=== PATIENT | female | born 1960 | race Caucasian/White ===

== ENCOUNTER 2024-02-20 20:51 | Emergency (ER) | payer BC, OTHER ==
[~2024-02-20] VITALS: Ht 152.4 cm; Wt 53.1 kg
--- NOTE | 2024-02-20 21:18 | ED.PDOC ---
HPI Comments 63-year-old female who came to ER for chest pains. About 5:00 p.m. today, she started experiencing sudden onset left-sided chest pains, non provoked, sharp, radiating to her right shoulder, associated with nausea and tingling sensation over her extremities. Patient denies having any similar pain. Patient appears very anxious at this time Chief Complaint: Chest Pain Time Seen by MD: 21:18 Reviewed Notes: Nurses Notes Allergies: Coded Allergies: NO KNOWN ALLERGIES (Unverified , 02/20/24) Information Source: Patient Mode of Arrival: Ambulatory Severity: Moderate Timing: Hours Duration: Intermittent Prehospital treatment: None Location: Chest (L) Radiation: Shoulder (R) Quality: Sharp, Stabbing Onset: With Light Exertion Cardiac Risk Factors: Hyperlipidemia PE Risk Factors: None History of: None Modifying Factors: Nothing Associated Signs and Symptoms: N/V Past Medical History PAST MEDICAL HISTORY: Anxiety, Gout, High Lipids Past Medical History (Other): Chronic back pain Surgical History: Denies all surgeries 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 Family History Family History: Reviewed,noncontributory to illness Social History Smoker: Non-Smoker Alcohol: Denies ETOH Use Drugs: Denies Drug Use Lives In: Home Constitutional: denies: chills, diaphoresis, fatigue, fever, malaise, sweats, weakness, others EENTM: denies: blurred vision, double vision, ear bleeding, ear discharge, ear drainage, ear pain, ear ringing, eye pain, eye redness, hearing loss, mouth pain, mouth swelling, nasal discharge, nose bleeding, nose congestion, nose pain, photophobia, tearing, throat pain, throat swelling, voice changes, others Respiratory: denies: cough, hemoptysis, orthopnea, SOB at rest, shortness of breath, SOB with excertion, stridor, wheezing, others Cardiovascular: reports: chest pain; denies: dizzy spells, diaphoresis, Dyspnea on exertion, edema, irregular heart beat, left arm pain, lightheadedness, palpitations, PND, syncope, others Gastrointestinal: reports: nausea; denies: abdomen distended, abdominal pain, blood streaked bowels, constipated, diarrhea, dysphagia, difficulty swallowing, hematemesis, melena, poor appetite, poor fluid intake, rectal bleeding, rectal pain, vomiting, others Genitourinary: denies: abnormal vagina bleeding, burning, dyspareunia, dysuria, flank pain, frequency, hematuria, incontinence, pain, , vagina discharge, urgency, others Neurological: reports: tingling; denies: dizziness, fainting, headache, left sided numbness, left sided weakness, numbness, paresthesia, pre-existing deficit, right sided numbness, right sided weakness, seizure, speech problems, tremors, weakness, others Musculoskeletal: denies: back pain, gout, joint pain, joint swelling, muscle pain, muscle stiffness, neck pain, others Integumetry: denies: bruises, change in color, change in hair/nails, dryness, laceration, lesions, lumps, rash, wounds, others Allergic/Immunocompromised: denies: Difficulty Healing, Frequent Infections, Hives, Itching, others Hematologic/Lymphatic: denies: anemia, blood clots, easy bleeding, easy bruising, swollen glands, others Endocrine: denies: excessive hunger, excessive sweating, excessive thirst, excessive urination, flushing, intolerance to cold, intolerance to heat, unexplained weight gain, unexplained weight loss, others Psychiatric: denies: anxiety, bipolar disorder, depression, hopeless, panic disorder, schizophrenia, sleepless, suicidal, others Physical Exam General Appearance: No Apparent Distress, Normal HEENT: Normal ENT Inspection, Pharynx Normal, TMs Normal Neck: Full Range of Motion, Non-Tender, Normal, Normal Inspection Respiratory: Chest Non-Tender, Lungs Clear, No Accessory Muscle Use, No Respiratory Distress, Normal Breath Sounds Cardiovascular: No Edema, No JVD, No Murmur, No Gallop, Normal Peripheral Pulses, Regular Rate/Rhythm Breast Exam: Deferred Gastrointestinal: No Organomegaly, Non Tender, No Pulsatile Mass, Normal Bowel Sounds, Soft Genitalia: Deferred Pelvic: Deferred Rectal: Deferred Extremities: No calf tenderness, Normal capillary refill, Normal inspection, Normal range of motion, Non-tender, No pedal edema Musculoskeletal : Apperance: Normal Neurologic: Alert, food cart attendant II-XII nml as Tested, No Motor Deficits, Normal Affect, Normal Mood, No Sensory Deficits Cerebellar Function: Normal Reflexes: Normal Skin: Dry, Normal Color, Warm Lymphatic: No Adenopathy Was a procedure done? Was a procedure done?: No CP Differential Dx Differential Diagnosis: Angina, Anxiety / Panic Attack Differential Diagnosis: Angina, Chest Wall Pain, Costochondritis, Esophageal reflux/spasm, Gastritis, Myocardial Infarction X-Ray, Labs, Meds, VS Vital Signs Date Time Temp Pulse Resp B/P (MAP) Pulse Ox O2 Delivery O2 Flow Rate FiO2 02/21/24 00:08 108 02/20/24 22:02 127 02/20/24 20:55 98.1 132 20 133/97 (109) 99 02/20/24 20:55 120 Lab Test 02/21/24 00:14 02/20/24 22:14 02/20/24 21:00 Range/Units Troponin I High Sensitivity Pending < 3 L < 3 L </=34 ng/L White Blood Count 8.3 4.4-10.8 10^3/uL Red Blood Count 5.29 H 4.0-5.20 10^6/uL Hemoglobin 16.1 12.2-16.2 g/dL Hematocrit 46.8 H 36.0-46.0 % Mean Corpuscular Volume 88.5 80.0-100.0 fL Mean Corpuscular Hemoglobin 30.5 28.0-32.0 pg Mean Corpuscular Hemoglobin Concent 34.4 32.0-36.0 g/dL Red Cell Distribution Width 13.8 11.8-14.3 % Platelet Count 251 140-450 10^3/uL Mean Platelet Volume 7.9 6.9-10.8 fL Neutrophils (%) (Auto) 88.8 H 37.0-80.0 % Lymphocytes (%) (Auto) 6.5 L 10.0-50.0 % Monocytes (%) (Auto) 4.3 0.0-12.0 % Eosinophils (%) (Auto) 0.2 0.0-7.0 % Basophils (%) (Auto) 0.2 0.0-2.0 % Neutrophils # (Auto) 7.4 1.6-8.6 10 ^3/uL Lymphocytes # (Auto) 0.5 0.4-5.4 10 ^3/uL Monocytes # (Auto) 0.4 0-1.3 10 ^3/uL Eosinophils # (Auto) 0 0-0.8 10 ^3/uL Basophils # (Auto) 0 0-0.2 10 ^3/uL Nucleated Red Blood Cells 0.3 % Sodium Level 140 136-145 mmol/L Potassium Level 3.6 3.5-5.1 mmol/L Chloride Level 106 98-107 mmol/L Carbon Dioxide Level 28 20-31 mmol/L Anion Gap 6 5-15 Blood Urea Nitrogen 11 9-23 mg/dL Creatinine 0.90 0.550-1.02 mg/dL Glomerular Filtration Rate Calc 73 >90 mL/min BUN/Creatinine Ratio 12.2 10.0-20.0 Serum Glucose 131 H 74-106 mg/dL Calcium Level 9.8 8.7-10.4 mg/dL Time of 1ST Reevaluation: 21:13 Reevaluation 1ST: Unchanged Patient Education/Counseling: Diagnosis, Treatment Family Education/Counseling: No Family Present Departure 1 Departure Time of Disposition: 00:30 (Patient presented with chest pain that was concerning for possible STEMI, ACS, PE, Pneumonia, Muscle Strain, COPD, Diss ection. Data: 1. I ordered and reviewed the result of at least 3 labs including a CBC, BMP, and Troponin. 2. I independently interpreted the following tests: EKG which shows normal sinus rhythm and Chest X-ray which shows a benign chest.Risk:This patient presented with a high risk of morbidity due to further diagnostic testing or treatment and may suffer from an acute cardiac or re spiratory disorder. After review of all the data patient is unlikely to have a pe , dissection, and is low risk for acs. Patient is stable at this time.Workup so far is benign and patient will be discharged with outpatient followup. ) Impression: Primary Impression: Acute chest pain Disposition: HOME / SELF CARE / HOMELESS Condition: Stable Additional Instructions: You presented today with chest pain. Your workup today was benign including labs, troponin, EKG, chest x-ray. Your pain may be from musculoskeletal strain, acid reflux, anxiety, or many other factors. It is important to follow up with your regular doctor within 1 week. If your symptoms worsen or you have any other concerns please return to the emergency room. Discharged With: Self Critical Care Note Critical Care Time?: Yes (35 min-critical care time only) Stability Stability form required: No Heart Score Heart Score: Heart Score Response (Comments) Value History Moderate Suspicious 1 EKG Repolarization Disturb 1 Age 45-64 1 Risk Factors 1 or 2 risk factors 1 Troponin Normal limit 0 Total 4 I personally scribed for GALEN PAREDES MD ([email or web address]) on 02/20/24 at 21:18. Electronically submitted by Savage Farah ([email or web address]). GALEN PAREDES MD Feb 20, 2024 21:18
--- NOTE | 2024-02-20 22:17 | ECG ---
[facility] Test Date: 2024-02-20 Test Time: 22:02:47 Pat Name: PACO THOMAS Department: ER Room: Gender: F Drop Wirer: : 1960 Requested By: GALEN PAREDES Order Number: [id number] Reading MD: Measurements Intervals [place] Rate: 127 P: 50 [place]: 130 QRS: 30 QRSD: 82 T: 47 QT: 309 QTc: 450 Interpretive Statements Sinus tachycardia Low voltage, precordial leads Please click the below link to view image of tracing.
[2024-02-20 23:32] LABS: Basophils # (auto) 0 10 ^3/uL (0-0.2); Basophils % (auto) 0.2 % (0.0-2.0); Eosinophils # (auto) 0 10 ^3/uL (0-0.8); Eosinophils % (auto) 0.2 % (0.0-7.0); Hematocrit 46.8 % (36.0-46.0); Hemoglobin 16.1 g/dL (12.2-16.2); Lymphocytes # (auto) 0.5 10 ^3/uL (0.4-5.4); Lymphocytes % (auto) 6.5 % (10.0-50.0); Mean Corpuscular Hemoglobin 30.5 pg (28.0-32.0); Mean Corpuscular Hgb Conc. 34.4 g/dL (32.0-36.0); Mean Corpuscular Volume 88.5 fL (80.0-100.0); Monocytes # (auto) 0.4 10 ^3/uL (0-1.3); Monocytes % (auto) 4.3 % (0.0-12.0); Neutrophils # (auto) 7.4 10 ^3/uL (1.6-8.6); Neutrophils % (auto) 88.8 % (37.0-80.0); Nucleated Red Blood Cells % 0.3 %; Platelet Count (auto) 251 10^3/uL (140-450); Red Blood Cells 5.29 10^6/uL (4.0-5.20); Red Cell Distribution Width 13.8 % (11.8-14.3); White Blood Cell 8.3 10^3/uL (4.4-10.8)
[2024-02-20 23:34] LABS: Chloride 106 mmol/L (98-107); Potassium 3.6 mmol/L (3.5-5.1); Sodium 140 mmol/L (136-145)
[2024-02-20 23:35] LABS: Anion Gap 6 (5-15); Calcium 9.8 mg/dL (8.7-10.4); Carbon Dioxide 28 mmol/L (20-31)
[2024-02-20 23:40] LABS: BUN/Creatinine Ratio 12.2 (10.0-20.0); Blood Urea Nitrogen 11 mg/dL (9-23); Glucose 131 mg/dL (74-106)
--- NOTE | 2024-02-20 23:42 | DVH ---
XY CHEST TWO VIEWS ROUTINE, HISTORY: chest pain COMPARISON: None None TECHNICAL DATA: 2 view of the chest was obtained. FINDINGS: Lines and tubes: None Cardiomediastinal silhouette: normal Pulmonary vasculature: normal Lung expansion: normal Lung airspace: normal Lung interstitium: normal Pleura: normal Pneumothorax: no Bones: Unremarkable Other: no IMPRESSION: No acute intrathoracic abnormality.
[2024-02-21] MEDS: ACETAMINOPHEN 325 MG TAB PO ONE (01:19)
[2024-02-21] MEDS: KETOROLAC TROMETH 30 MG/ML 1ML VIAL IM ONE (01:39)
[2024-02-21 01:40] VITALS: BP 129/81; PULSE 124; RESP 18; TEMP 100.1; O2SAT 94
--- NOTE | 2024-02-22 13:50 | ECG ---
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
--- NOTE | 2024-02-23 11:12 | ECG ---
[facility] Test Date: 2024-02-20 Test Time: 20:55:32 Pat Name: PACO TOHMAS Department: TRIAGE Room: Gender: F Engineering Programmer: PATTIE : 1960 Requested By: GALEN PAREDES Order Number: [id number] Reading MD: Measurements Intervals [place] Rate: 120 P: 42 [place]: 141 QRS: 17 QRSD: 70 T: 34 QT: 317 QTc: 448 Interpretive Statements Sinus tachycardia Low voltage, precordial leads Borderline T abnormalities, anterior leads Please click the below link to view image of tracing.
== END 2024-02-21 01:43 | disposition home or self-care (01) ==
LOC: ER 20:51
DX: R07.89 Other chest pain (principal); F41.9 Anxiety disorder, unspecified; E78.5 Hyperlipidemia, unspecified; M10.9 Gout, unspecified
CPT/HCPCS: 36415; 71046; 80048; 84484; 85025; 93005; 96372; 99285; J1885

== ENCOUNTER 2025-03-30 04:21 | Inpatient (IN) | payer BC ==
[~2025-03-30] VITALS: Ht 152.4 cm; Wt 60.8 kg
[2025-03-30] MEDS: ONDANSETRON HCL 4 MG/2 ML VIAL IV ONE (06:47)
[2025-03-30] MEDS: diazePAM 5 MG TAB PO ONE (06:48)
[2025-03-30] MEDS: MORPHINE SULFATE 4 MG/ML SYR/VIAL IV ONE (06:52)
[2025-03-30] MEDS: HALOPERIDOL LACTATE 5 MG/ML INJ VIAL IM ONE (06:53)
[2025-03-30] MEDS: SODIUM CHLORIDE 0.9% 1,000 ML IV ONE (06:53)
--- NOTE | 2025-03-30 06:53 | ED.PDOC ---
Musculoskeletal HPI Comments 65 year old female presents to the ED for chief complaint of sciatica pain. Pt states that pain began after they received an epidural 2 weeks ago at a Specialist's office in [place]. Pt describes the pain as radiating down her left buttock down to her sciatica. Pt has a PMHx of 5 herniated sics, sciatica nerve pain, and is currently awaiting a referral for an upcoming spinal surgery. Pt denies associated symptoms of dizziness, headache, fever, or chills. Pt has elevated blood pressure of 149/86 however vitals are otherwise stable. Pt did not note any exacerbating or relieving factors and denies any other symptoms at this time. Chief Complaint: Lower Extremity Time Seen by MD: 06:48 Reviewed Notes: Nurses Notes, Medications Allergies: Coded Allergies: NO KNOWN ALLERGIES (Unverified , 02/20/24) Information Source: Patient Mode of Arrival: Ambulatory Location: Left Extremity Location: Leg Timing: Weeks Prehospital treatment: Other ([place], Baclofen) Severity: Moderate Able to Move Extremity: Yes Bear Weight: Limited Pain: Moderate Mechanism: Spontaneous Circumstances: Spontaneous Onset of Symptoms: Spontaneous Symptoms: Pain DVT Risk Factors: NONE Associated signs and symptoms: Back pain, Leg pain Past Medical History PAST MEDICAL HISTORY: Anxiety, Gout, High Lipids Surgical History: Denies all surgeries 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 all 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 RACING MANAGER Hx Family History Family History: Reviewed,noncontributory to illness Social History Smoker: Non-Smoker Alcohol: Denies ETOH Use Drugs: Denies Drug Use Lives In: Home Constitutional: denies: chills, diaphoresis, fatigue, fever, malaise, sweats, weakness, others EENTM: denies: blurred vision, double vision, ear bleeding, ear discharge, ear drainage, ear pain, ear ringing, eye pain, eye redness, hearing loss, mouth pain, mouth swelling, nasal discharge, nose bleeding, nose congestion, nose pain, photophobia, tearing, throat pain, throat swelling, voice changes, others Cardiovascular: denies: chest pain, dizzy spells, diaphoresis, Dyspnea on exertion, edema, irregular heart beat, left arm pain, lightheadedness, palpitations, PND, syncope, others Gastrointestinal: denies: abdomen distended, abdominal pain, blood streaked bowels, constipated, diarrhea, dysphagia, difficulty swallowing, hematemesis, melena, nausea, poor appetite, poor fluid intake, rectal bleeding, rectal pain, vomiting, others Genitourinary: denies: abnormal vagina bleeding, burning, dyspareunia, dysuria, flank pain, frequency, hematuria, incontinence, pain, , vagina discha rge, urgency, others Neurological: denies: dizziness, fainting, headache, left sided numbness, left sided weakness, numbness, paresthesia, pre-existing deficit, right sided numbness, right sided weakness, seizure, speech problems, tingling, tremors, weakness, others Musculoskeletal: reports: back pain, muscle pain, others (sciatica pain, left buttock pain); denies: gout, joint pain, joint swelling, muscle stiffness, neck pain Integumetry: denies: bruises, change in color, change in hair/nails, dryness, laceration, lesions, lumps, rash, wounds, others Allergic/Immunocompromised: denies: Difficulty Healing, Frequent Infections, Hives, Itching, others Hematologic/Lymphatic: denies: anemia, blood clots, easy bleeding, easy bruising, swollen glands, others Endocrine: denies: excessive hunger, excessive sweating, excessive thirst, excessive urination, flushing, intolerance to cold, intolerance to heat, unexplained weight gain, unexplained weight loss, others Psychiatric: denies: anxiety, bipolar disorder, depression, hopeless, panic disorder, schizophrenia, sleepless, suicidal, others All Other Systems: Reviewed and Negative Physical Exam General Appearance: Moderate Distress HEENT: Normal ENT Inspection, Pharynx Normal, TMs Normal Neck: Full Range of Motion, Non-Tender, Normal, Normal Inspection Respiratory: Chest Non-Tender, Lungs Clear, No Accessory Muscle Use, No Respiratory Distress, Normal Breath Sounds Cardiovascular: No Edema, No JVD, No Murmur, No Gallop, Normal Peripheral Pulses, Regular Rate/Rhythm Breast Exam: Deferred Gastrointestinal: No Organomegaly, Non Tender, No Pulsatile Mass, Normal Bowel Sounds, Soft Genitalia: Deferred Pelvic: Deferred Rectal: Deferred Extremities: Decreased range of motion, Other Neurologic: Alert, enamel buffer II-XII nml as Tested, No Motor Deficits, Normal Affect, Normal Mood, No Sensory Deficits Cerebellar Function: Normal Reflexes: Normal Skin: Dry, Normal Color, Warm Lymphatic: No Adenopathy Was a procedure done? Was a procedure done?: No Differential Diagnosis EXT Differential Diagnosis: Other X-Ray, Labs, Meds, VS Vital Signs Date Time Temp Pulse Resp B/P (MAP) Pulse Ox O2 Delivery O2 Flow Rate FiO2 03/30/25 08:38 68 16 111/75 03/30/25 08:38 97.5 68 16 111/75 (87) 94 97.5 03/30/25 06:52 61 20 154/85 03/30/25 06:51 97.7 61 20 154/85 (108) 96 97.7 03/30/25 06:42 Room Air* 0 21 03/30/25 05:39 98.1 74 20 149/86 (107) 96 98.1 03/30/25 04:27 97.8 62 18 158/89 96 97.8 Current Medications Medications (Trade) Dose Ordered Sig/Nathaniel Route Start Time Stop Time Status Last Admin Sodium Chloride 1,000 ml @ 1,000 mls/hr Q1H ONCE IV 03/30/25 06:30 03/30/25 07:29 DC 03/30/25 06:53 Morphine Sulfate 4 mg ONCE ONCE IV 03/30/25 06:30 03/30/25 06:31 DC 03/30/25 06:52 Ondansetron HCl (Zofran) 4 mg ONCE ONCE IV 03/30/25 06:30 03/30/25 06:31 DC 03/30/25 06:47 Haloperidol Lactate (Haldol) 10 mg ONCE ONCE IM 03/30/25 06:30 03/30/25 06:31 DC 03/30/25 06:53 Diazepam (Valium Tablet) 5 mg ONCE ONCE PO 03/30/25 06:30 03/30/25 06:33 DC 03/30/25 06:48 [place] [address] Ph: [phone] DIAGNOSTIC IMAGING Diagnostic Imaging Report : [id number] Signed PATIENT: PACO THOMAS ACCT: [id number] UNIT: [id number] : 1960 LOC: ER ROOM / BED: / AGE / SEX: 65 / F ADM STATUS: REG ER SERVICE 9 ORDERING PHYSICIAN: GALEN PAREDES MD PROCEDURE(s): LUMB2 - LUMBAR SPINE 3 VIEW REASON: lower back pain ORDER NUMBER(s): [id number], ACCESSION NUMBER(s): [id number] INDICATION: lower back pain TECHNIQUE: Frontal and lateral views of the lumbar spine were obtained. COMPARISON: None FINDINGS: Multilevel degenerative changes most severe at L3-L4 through L5-S1 with moderate to severe neural foraminal and spinal canal stenosis.. There are no fractures or subluxations. Vertebral body heights and disc spaces are well maintained. Paravertebral soft tissues are unremarkable. IMPRESSION: 1. Of the visualized spine, there is no evidence for fracture or subluxation. ATED BY: KEVIN LOPEZ MD DICTATED DATE/TIME: 03/30/25823 SIGNED BY: KEVIN LOPEZ MD SIGNED DATE/TIME: 03/30/25823 CC: Time of 1ST Reevaluation: 07:18 Reevaluation 1ST: Unchanged Patient Education/Counseling: Diagnosis, Treatment, Prognosis Family Education/Counseling: No Family Present Departure 1 Departure Time of Disposition: 09:11 (Patient with intractable lower back pain and difficulty ambulating. We will admit patient for further workup and expert consultation) Impression: Primary Impression: Intractable back pain Additional Impression: Difficulty in walking Disposition: 09 ADMITTED INPATIENT Admit to: Med Surg Condition: Serious Critical Care Note Critical Care Time?: No Stability Stability form required: No Heart Score Heart Score: Heart Score Response (Comments) Value History N/A 0 EKG N/A 0 Age N/A 0 Risk Factors N/A 0 Troponin N/A 0 Total 0 I personally scribed for GALEN PAREDES MD ([email or web address]) on 03/30/25 at 06:53. Electronically submitted by Haylee Girard ([email or web address]). I personally scribed for GALEN PAREDES MD ([email or web address]) on 03/30/25 at 07:06. E lectronically submitted by Deidra Burgos ([email or web address]). I personally scribed for GALEN PAREDES MD ([email or web address]) on 03/30/25 at 08:31. Elec tronically submitted by Deidra Burgos ([email or web address]). GALEN PAREDES MD Mar 30, 2025 06:53
--- NOTE | 2025-03-30 08:26 | DVH ---
INDICATION: lower back pain TECHNIQUE: Frontal and lateral views of the lumbar spine were obtained. COMPARISON: None FINDINGS: Multilevel degenerative changes most severe at L3-L4 through L5-S1 with moderate to severe neural foraminal and spinal canal stenosis.. There are no fractures or subluxations. Vertebral body heights and disc spaces are well maintained. Paravertebral soft tissues are unremarkable. IMPRESSION: 1. Of the visualized spine, there is no evidence for fracture or subluxation.
[2025-03-30 10:08] LABS: Hematocrit 40.3 % (36.0-46.0); Hemoglobin 13.3 g/dL (12.2-16.2); Mean Corpuscular Hemoglobin 28.5 pg (28.0-32.0); Mean Corpuscular Volume 86.7 fL (80.0-100.0); Nucleated Red Blood Cells % 0.1 %
[2025-03-30 10:16] LABS: Potassium 4.0 mmol/L (3.5-5.1); Sodium 145 mmol/L (136-145)
[2025-03-30 10:17] LABS: Anion Gap 10 (5-15); Calcium 8.8 mg/dL (8.7-10.4); Carbon Dioxide 25 mmol/L (20-31)
[2025-03-30 10:22] LABS: BUN/Creatinine Ratio 10.4 (10.0-20.0)
[2025-03-30 10:23] LABS: Blood Urea Nitrogen 7 mg/dL (9-23); Chloride 110 mmol/L (98-107); Glucose 108 mg/dL (74-106)
--- NOTE | 2025-03-30 12:12 | DVHHP2 ---
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 The patient reports that approximately two weeks ago she received a spinal injection by her orthopedic helpdesk specialist. Since that time, she feels the injection may have affected a nerve, as she has experienced progressively worsening pain in the left lower back with radiation down the left leg. She describes the pain as severe and constant, stating she is unable to walk, sit, or ambulate due to pain. She has been taking [place] at home without relief. She reports a known history of lumbar disc herniation from L3 through L5, with prior imaging demonstrating severe L3L4 and obmhgmfk-up-fivral neural foraminal and spinal canal stenosis at L3L4, L4L5, and L5S1. She is currently awaiting referral for outpatient spine surgery. cbc unremarkable cmp unremarkable ua normal. She denies bowel incontinence, urinary incontinence, or urinary retention. She denies saddle anesthesia. She also denies chest pain, shortness of breath, abdominal pain, fever, or recent trauma. In the emergency department, she received morphine, diazepam (Valium), haloperidol, and IV normal saline for pain and symptom control. She is admitted for intractable radicular pain, further imaging, and possible spine consultation. will admit to medicine Past Medical History See HPI above Past Surgical History See HPI above Family History Reviewed, non-contributory to the management of this case. Past Social History The patient lives at home, denies smoking, alcohol or illicit drugs abuse. Review of Systems Constitutional: No: Fever, Chills, Sweats, Weakness, Malaise, Other Eyes: No: Pain, Vision change, Conjunctivae inflammation, Eyelid inflammation, Other, Redness ENT: No: Ear pain, Ear discharge, Nose pain, Nose discharge, Nose congestion, Mouth pain, Mouth swelling, Throat pain, Throat swelling, Other Respiratory: No: Cough, Dry, Shortness of breath, SOB with excertion, Wheezing, Hemoptysis, Pleuritic Pain, Sputum, Wheezing, Other Cardiovascular: No: Chest Pain, Palpitations, Orthopnea, Paroxysmal Noc. Dyspnea, Edema, Lt Headedness, Other Gastrointestinal: No: Nausea, Vomiting, Abdominal Pain, Diarrhea, Constipation, Melena, Hematochezia, Other Genitourinary: No Dysuria, No Frequency, No Incontinence, No Hematuria, No Retention, No Other Musculoskeletal: back pain; No: other, neck pain, shoulder pain, arm pain, hand pain, leg pain, foot pain Skin: No: Rash, Lesions, Jaundice, Bruising, Other Neurological: Weakness; No: Numbness, Incoordination, Change in speech, Confusion, Seizures, Other Allergies: Coded Allergies: NO KNOWN ALLERGIES (Unverified , 02/20/24) Exam Vital Signs Vital Signs Date Time Temp Pulse Resp B/P (MAP) Pulse Ox O2 Delivery O2 Flow Rate FiO2 03/30/25 08:38 68 16 111/75 03/30/25 08:38 97.5 94 97.5 03/30/25 06:42 Room Air* 0 21 General Appearance: Alert, Oriented X3, Cooperative, No acute distress HEENT: Atraumatic, PERRLA, EOMI, Mucous membr. moist/pink Respiratory: Clear to auscultation, Normal air movement Cardiovascular: Regular rate, Normal S1, Normal S2, No murmurs Abdominal: Normal bowel sounds, Soft, No tenderness, No hepatospenomegaly, No masses Extremities: No clubbing, No cyanosis, No edema, Normal pulses, No tenderness/swelling Skin: No rashes, No breakdown, No significant lesion Neuro: Normal speech, Strength at 5/5 X4 ext, Normal tone, Sensation intact, Cranial nerves 3-12 NL, Other (midline limbar tenderness) Labs/Xrays I reviewed labs, imaging CT scan abdomen pelvis, EKG and all diagnostic studies on this patient from ED records and the medical chart Labs Test 03/30/25 09:30 Range/Units White Blood Count 5.6 4.4-10.8 10^3/uL Red Blood Count 4.65 4.0-5.20 10^6/uL Hemoglobin 13.3 12.2-16.2 g/dL Hematocrit 40.3 36.0-46.0 % Mean Corpuscular Volume 86.7 80.0-100.0 fL Mean Corpuscular Hemoglobin 28.5 28.0-32.0 pg Mean Corpuscular Hemoglobin Concent 32.9 32.0-36.0 g/dL Red Cell Distribution Width 14.0 11.8-14.3 % Platelet Count 233 140-450 10^3/uL Mean Platelet Volume 7.8 6.9-10.8 fL Neutrophils (%) (Auto) 53.7 37.0-80.0 % Lymphocytes (%) (Auto) 33.3 10.0-50.0 % Monocytes (%) (Auto) 7.2 0.0-12.0 % Eosinophils (%) (Auto) 4.7 0.0-7.0 % Basophils (%) (Auto) 1.1 0.0-2.0 % Neutrophils # (Auto) 3.0 1.6-8.6 10 ^3/uL Lymphocytes # (Auto) 1.9 0.4-5.4 10 ^3/uL Monocytes # (Auto) 0.4 0-1.3 10 ^3/uL Eosinophils # (Auto) 0.3 0-0.8 10 ^3/uL Basophils # (Auto) 0.1 0-0.2 10 ^3/uL Nucleated Red Blood Cells 0.1 % Sodium Level 145 136-145 mmol/L Potassium Level 4.0 3.5-5.1 mmol/L Chloride Level 110 H 98-107 mmol/L Carbon Dioxide Level 25 20-31 mmol/L Anion Gap 10 5-15 Blood Urea Nitrogen 7 L 9-23 mg/dL Creatinine 0.67 0.550-1.02 mg/dL Glomerular Filtration Rate Calc 98 >90 mL/min BUN/Creatinine Ratio 10.4 10.0-20.0 Serum Glucose 108 H 74-106 mg/dL Calcium Level 8.8 8.7-10.4 mg/dL SEPSIS Sepsis Screen Date sepsis recognized/suspect: Mar 30, 2025 Time Sepsis recognized/suspect: 043 Recent Procedure: No On Antibiotic Therapy: No Respiratory Rate >20: No Heart Rate >90: No Temp<36 C (96.8 F) or >38.3 C: No SBP <90 or MAP <65 mmHG: No New Acute Mental Status Change: No Is the patient on CPAP, BIPAP,: No Physician Orders Lumbar Spine 3 View (03/30/25 06:30) Urinalysis (03/30/25 09:09) Admit (03/30/25 12:06) Allergies (03/30/25 12:06) Code Status (03/30/25 12:06) Ondansetron Hcl (Zofran) (03/30/25 12:15) Docusate Sodium Capsule (Colace Capsule) (03/30/25 12:15) Enoxaparin Sodium (Lovenox) (03/31/25 10:00) Fall Risk Precautions In Place QSHIFT (03/30/25 12:06) Complete Blood Count (03/31/25 04:00) Comprehensive Metabolic Panel (03/31/25 04:00) Pt Request For Service (03/30/25 12:06) Condition: Stable (03/30/25 12:06) BRP (03/30/25 12:06) Morphine Sulfate Injection (03/30/25 12:15) Sequential Compression Device (03/30/25 ) Nitroglycerin Sublingual (Ntrostat Subli (03/30/25 12:15) Stat Ekg For Chest Pain (03/30/25 12:06) Notify Of Changes From Base (03/30/25 12:06) Treasury Consultant For 24 Hours (03/30/25 12:06) Emergency Dysrhythmia Protocol (03/30/25 12:06) Rhythm Strips Once Every Shift (03/30/25 12:06) Oxygen By Nasal Cannula (03/30/25 12:06) Ls Spine Wo Contrast (03/30/25 12:06) Neuro Checks Q2hrs Q2HR (03/30/25 12:06) Morphine Sulfate Injection (03/30/25 12:15) Methocarbamol (Robaxin) (03/30/25 12:15) Methocarbamol (Robaxin) (03/30/25 18:00) Dexamethasone Injection (Decadron Inject (03/30/25 12:15) Dexamethasone Injection (Decadron Inject (03/31/25 10:00) Gabapentin Capsule (Neurontin Capsule) (03/30/25 22:00) Vital Signs Date Time Temp Pulse Resp B/P (MAP) Pulse Ox O2 Delivery O2 Flow Rate FiO2 03/30/25 08:38 68 16 111/75 03/30/25 08:38 97.5 68 16 111/75 (87) 94 97.5 03/30/25 06:52 61 20 154/85 03/30/25 06:51 97.7 61 20 154/85 (108) 96 97.7 03/30/25 06:42 Room Air* 0 21 03/30/25 05:39 98.1 74 20 149/86 (107) 96 98.1 03/30/25 04:27 97.8 62 18 158/89 96 97.8 Laboratory Tests Test 03/30/25 09:30 White Blood Count 5.6 10^3/uL (4.4-10.8) Medications Medications Dose Ordered Sig/Nathaniel Route Start Time Stop Time Status Last Admin Dose Admin Diazepam 5 mg ONCE ONCE PO 03/30/25 06:30 03/30/25 06:33 DC 03/30/25 06:48 5 MG Haloperidol Lactate 10 mg ONCE ONCE IM 03/30/25 06:30 03/30/25 06:31 DC 03/30/25 06:53 10 MG Morphine Sulfate 4 mg ONCE ONCE IV 03/30/25 06:30 03/30/25 06:31 DC 03/30/25 06:52 4 MG Ondansetron HCl 4 mg ONCE ONCE IV 03/30/25 06:30 03/30/25 06:31 DC 03/30/25 06:47 4 MG Sodium Chloride 1,000 ml @ 1,000 mls/hr Q1H ONCE IV 03/30/25 06:30 03/30/25 07:29 DC 03/30/25 06:53 1,000 MLS/HR Assessment/Plan Assessment/Plan 65 year-old female admitted for intractable lumbar radiculopathy following recent spinal injection, in the setting of known multilevel lumbar disc herniation and spinal canal stenosis, requiring pain control and further evaluation. acute Intractable lumbar radiculopathy with left-sided sciatica Severe left lower back pain radiating down left leg Poor response to outpatient [place] Continue multimodal pain control Neuro checks Avoid excessive opioids if possible ordered morphine prn pain gabapentin robaxin acute Lumbar disc herniation with spinal canal and neural foraminal stenosis (L3S1) xray of l spine Known severe L3L4 and etjqdtrb-ml-mfcbld L4L5, L5S1 stenosis CT lumbar spine ordered Ortho spine consult if imaging shows acute changes or neurologic compromise Continue outpatient surgical referral planning Recent spinal injection with concern for post-procedural nerve irritation Symptoms temporally related to injection Monitor for red-flag symptoms (weakness, bowel/bladder changes) Impaired mobility due to pain Unable to ambulate or sit due to pain PT evaluation once pain improves chronic problems Lumbar disc herniation Chronic lumbar radiculopathy / nerve pain FEN / PPx Fluids: IV fluids Electrolytes: Monitor BMP Nutrition: Regular diet as tolerated DVT Prophylaxis: SCDs GI Prophylaxis: Not indicated Disposition Admit to medicine service for pain control, lumbar spine imaging, and monitoring. Proceed with orthopedic spine consultation pending imaging results and clinical course Plan discussed with: Patient My Orders Orders - RONNI GIMENEZ Breezy DNP Procedure Category Date Status Time Admit ADMIT 03/30/25 Transmitted 12:06 Allergies [facility]ELYN 03/30/25 Transmitted 12:06 Code Status CODE 03/30/25 Transmitted 12:06 Ondansetron Hcl PHA 03/30/25 Transmitted (Zofran) 12:15 Docusate Sodium PHA 03/30/25 Transmitted Capsule (Colace 12:15 Enoxaparin Sodium PHA 03/31/25 Transmitted (Lovenox) 10:00 Fall Risk Precautions [facility] 03/30/[address] 12:06 Complete Blood Count LAB 03/31/25 Verified 04:00 Comprehensive LAB 03/31/25 Verified Metabolic Panel 04:00 Pt Request For Service PT 03/30/25 Transmitted 12:06 Condition: Stable [facility] 03/30/25 Transmitted 12:06 BRP [facility] 03/30/25 Transmitted 12:06 Morphine Sulfate PHA 03/30/25 Transmitted Injection 12:15 Sequential [facility] 03/30/25 Transmitted Compression Device Nitroglycerin [facility] 03/30/25 Transmitted Sublingual (Ntrostat 12:15 Stat Ekg For Chest [facility] 03/30/25 Transmitted Pain 12:06 Notify Of Changes [facility] 03/30/25 Transmitted From Base 12:06 Treasury Consultant For [facility] 03/30/25 Transmitted 24 Hours 12:06 Emergency Dysrhythmia [facility] 03/30/25 Transmitted Protocol 12:06 Rhythm Strips Once [facility] 03/30/25 Transmitted Every Shift 12:06 Oxygen By Nasal RT 03/30/25 Transmitted Cannula 12:06 [address]s Spine Wo Contrast CT 03/30/25 Verified 12:06 Neuro Checks Q2hrs [facility] 03/30/25 Verified 12:06 Morphine Sulfate PHA 03/30/25 Verified Injection 12:15 Methocarbamol PHA 03/30/25 Verified (Robaxin) 12:15 Methocarbamol PHA 03/30/25 Verified (Robaxin) 18:00 Dexamethasone PHA 03/30/25 Verified Injection (Decadron 12:15 Dexamethasone PHA 03/31/25 Verified Injection (Decadron 10:00 Gabapentin Capsule PHA 03/30/25 Verified (Neurontin Capsule) 22:00 Date of Service: Mar 30, 2025 Billing Provider: RONNI GIMENEZ DNP Common Visit Codes: [id number] INP/OBS CARE (HIGH) RONNI GIMENEZ DNP Mar 30, 2025 12:12
[2025-03-30] MEDS ORDERED: MORPHINE SULFATE 4 MG/ML SYR/VIAL IV PRN (12:15)
[2025-03-30] MEDS ORDERED: NITROGLYCERIN 0.4 MG SL TAB SL PRN (12:15)
[2025-03-30] MEDS ORDERED: ONDANSETRON HCL 4 MG/2 ML VIAL IV PRN (12:15)
[2025-03-30] MEDS ORDERED: DOCUSATE SOD 100 MG CAP PO PRN (12:15)
[2025-03-30] MEDS: METHOCARBAMOL 500 MG TAB PO ONE (13:01)
--- NOTE | 2025-03-30 13:02 | DVH ---
EXAM: CT LS SPINE WO CONTRAST HISTORY: eval for acute low back pain COMPARISON: XY LUMBAR SPINE 3 VIEW on DOS: 03/30/25 CTDIvol 12.63 mGy, DLP 2.47 mGy*cm. TECHNIQUE: Multiple axial CT images of the spine were obtained using bone algorithm. Axial and coronal reformatting was done. Bone and soft tissue windows were reviewed. FINDINGS: No evidence of definite acute fracture, spinal dislocation, or significant appearing acute subluxation is seen. Scoliosis. Multilevel degenerative changes of the spine. Moderate canal and bilateral foraminal stenosis at L2-L3 and L3-L4 and L4-L5. Multilevel degenerative disc space narrowing. IMPRESSION: No definite CT evidence of acute fracture or dislocation of the bony lumbar spine.
[2025-03-30 13:47] VITALS: BP 155/85; PULSE 62; RESP 16; TEMP 97.6; O2SAT 94
[2025-03-30 14:25] LABS: Urine Protein, UAD Negative (Negative)
[2025-03-30 14:27] VITALS: BP 155/85; PULSE 62; RESP 16; TEMP 97.6; O2SAT 94
[2025-03-30] MEDS ORDERED: SUMA6KIT SC (14:43)
[2025-03-30] MEDS ORDERED: DULO60CA41 PO (14:43)
[2025-03-30] MEDS ORDERED: PROP60CA34 PO (14:43)
[2025-03-30] MEDS ORDERED: ROSU5TAB5 PO (14:43)
[2025-03-30 17:04] VITALS: BP 150/95; PULSE 75; RESP 16; TEMP 97.4; O2SAT 93
[2025-03-30] MEDS: METHOCARBAMOL 500 MG TAB PO SCH (18:15)
[2025-03-30 20:00] VITALS: PULSE 79; RESP 17; O2SAT 94
[2025-03-30 21:00] VITALS: BP 111/79; PULSE 79; RESP 17; TEMP 97; O2SAT 94
[2025-03-30] MEDS: GABAPENTIN 300 MG CAP PO SCH (21:31)
[2025-03-31] VITALS (7 sets, daily range): BP systolic 119–143; BP diastolic 67–83; PULSE 63–82; RESP 16–18; TEMP 96.1–97.7; O2SAT 92–96
[2025-03-31 06:50] LABS: Hematocrit 41.9 % (36.0-46.0); Hemoglobin 14.0 g/dL (12.2-16.2); Mean Corpuscular Hemoglobin 28.8 pg (28.0-32.0); Mean Corpuscular Volume 86.1 fL (80.0-100.0); Nucleated Red Blood Cells % 0.1 %
[2025-03-31 07:11] LABS: Alanine Aminotransferase 23 U/L (7-40); Alkaline Phosphatase 108 U/L (46-116); Anion Gap 9 (5-15); BUN/Creatinine Ratio 13.3 (10.0-20.0); Blood Urea Nitrogen 10 mg/dL (9-23); Calcium 9.3 mg/dL (8.7-10.4); Carbon Dioxide 26 mmol/L (20-31); Chloride 106 mmol/L (98-107); Glucose 105 mg/dL (74-106); Potassium 4.1 mmol/L (3.5-5.1); Sodium 141 mmol/L (136-145); Total Protein 6.6 g/dL (5.7-8.2)
[2025-03-31 07:12] LABS: Albumin 4.1 g/dL (3.2-4.8)
[2025-03-31 07:13] LABS: Bilirubin, Total 0.6 mg/dL (0.2-1.0)
[2025-03-31] MEDS: ENOXAPARIN SOD 40 MG/0.4 ML SYRINGE SC SCH (10:00)
[2025-03-31] MEDS: MORPHINE SULFATE 4 MG/ML SYR/VIAL IV PRN (11:12)
[2025-03-31 11:23] LABS: Hepatitis C Antibody Negative (Negative)
--- NOTE | 2025-03-31 14:14 | DVHPNRES ---
Progress Note Date Seen: Mar 31, 2025 Resident Creating Document: VALERIA RAE RESIDENT Medical Necessity Reason Pt with a Central, PICC or Fol: No Subjective Review of Systems 65-year-old female with a PMhx of lumbar disc herniation with chronic nerve pain, presents with severe left lower back pain radiating down the left leg. The patient reports that approximately two weeks ago she received a spinal injection by her orthopedic internal medicine specialist. Since that time, she feels the injection may have affected a nerve, as she has experienced progressively worsening pain in the left lower back with radiation down the left leg. She describes the pain as severe and constant, stating she is unable to walk, sit, or ambulate due to pain. She has been taking [place] at home without relief. She reports a known history of lumbar disc herniation from L3 through L5, with prior imaging demonstrating severe L3L4 and fqlcthqb-vw-nusubx neural foraminal and spinal canal stenosis at L3L4, L4L5, and L5S1. She is currently awaiting referral for outpatient spine surgery. cbc unremarkable cmp unremarkable ua normal. She denies bowel incontinence, urinary incontinence, or urinary retention. She denies saddle anesthesia. She also denies chest pain, shortness of breath, abdominal pain, fever, or recent trauma. Past Medical History: As stated above Past Surgical History: none Family History: Reviewed, non-contributory to the management of this case. Past Social History: lives at home, denies smoking, alcohol or illicit drugs abuse allergies: none 03/31/2025: Patient was seen and examined by me at the bedside today. Patient still reports of pain 10/10 in intensity radiating down her left leg , more on sitting down. Spinal surgery consult placed. Solu-Medrol 125 mg added. Objective vital signs Vital Sign Date Time Temp Pulse Resp B/P (MAP) Pulse Ox O2 Delivery O2 Flow Rate FiO2 03/31/25 13:00 96.7 77 16 119/78 (92) 93 96.7 03/31/25 08:00 Room Air* 0 21 Total Intake and Output 03/30/25 03/30/25 03/31/25 15:00 23:00 07:00 Intake Total 1000 ml 0 ml 100 ml Balance 1000 ml 0 ml 100 ml medications Current Medications Medications Dose Ordered Sig/Nathaniel Route Start Time Stop Time Status Last Admin Dose Admin Ondansetron HCl 4 mg Q4HP PRN IV 03/30/25 12:15 Docusate Sodium 100 mg BIDPRN PRN PO 03/30/25 12:15 Enoxaparin Sodium 40 mg DAILY SC 03/31/25 10:00 Morphine Sulfate 2 mg Q4HPRN PRN IV 03/30/25 13:00 03/31/25 11:12 2 MG Nitroglycerin 0.4 mg Q5MINP PRN SL 03/30/25 12:15 Methocarbamol 500 mg QID PO 03/30/25 18:00 03/31/25 12:40 500 MG Gabapentin 300 mg BID PO 03/30/25 22:00 03/30/25 21:31 300 MG Methylprednisolone Sodium Succinate 125 mg DAILY IV 04/01/25 10:00 Examination General Appearance: Alert, Oriented X3, Cooperative, No acute distress HEENT: Atraumatic, PERRLA, EOMI, Mucous membr. moist/pink Respiratory: Clear to auscultation, Normal air movement Cardiovascular: Regular rate, Normal S1, Normal S2, No murmurs Abdominal: Normal bowel sounds, Soft, No tenderness, No hepatospenomegaly, No masses Extremities: No clubbing, No cyanosis, No edema, Normal pulses, No tenderness/swelling Skin: No rashes, No breakdown, No significant lesion Neuro: Normal speech, Strength at 5/5 X4 ext, Normal tone, Sensation intact, Cranial nerves 3-12 NL, Other (midline limbar tenderness) laboratory and microbiology Laboratory Tests 03/31/25 06:22 Test 03/31/25 06:22 Range/Units Serum Glucose 105 74-106 mg/dL Labs and/or images reviewed: Labs reviewed by me, Image(s) reviewed by me Problem List/Assessment/Plan Problem List/Assessment/Plan #Acute Lumbar disc herniation with spinal canal and neural foraminal stenosis (L3S1) -xray of L spine Known severe L3L4 and skcnqikq-ze-qmiiun L4L5, L5S1 stenosis -xray ls spine shows: Multilevel degenerative changes most severe at L3-L4 through L5-S1 with moderate to severe neural foraminal and spinal canal stenosis.. There are no fractures or subluxations. Vertebral body heights and disc spaces are well maintained. -CT lumbar spine shows: Multilevel degenerative changes of the spine. Moderate canal and bilateral foraminal stenosis at L2-L3 and L3-L4 and L4-L5. Multilevel degenerative disc space narrowing. -Ortho spine consult, pending -Continue outpatient surgical referral planning -IV Solu-Medrol 125 mg daily Pain management with morphine, Robaxin #Acute Intractable lumbar radiculopathy with left-sided sciatica #Severe left lower back pain radiating down left leg -Poor response to outpatient [place] -Continue multimodal pain control -Neuro checks -ordered 2mg iv morphine prn pain gabapentin robaxin #Recent spinal injection with concern for post-procedural nerve irritation -Symptoms temporally related to injection -Monitor for red-flag symptoms (weakness, bowel/bladder changes) #Impaired mobility due to pain -Unable to ambulate or sit due to pain -PT evaluation once pain improves #hx of migraine -continue home medication propanolol daily #Hyperlipedemia -continue rosuvastatin daily GI prophylaxis: Not indicated DVT prophylaxis: SCDs Diet: Regular diet Goals of care discussed with the patient for more than 27 minutes: Full code status Case discussed with Dr. Mcclure, patient and nurse. Plan discussed with: Patient, Other (rn) My Orders My Orders Orders - VALERIA RAE RESIDENT Procedure Category Date Status Time Consultdr. Ishmael CONS 03/31/25 Transmitted [place](Spine) 11:19 Methylprednisolone PHA 04/01/25 In Process Sod Succ (Solu Medrol 10:00 Visit Coding STANDARD RES Billing Provider: SARA MCCLURE MD Date of Service if different f: Mar 31, 2025 Common Visit Codes: [id number] INP/OBS CARE(HIGH) VALERIA RAE RESIDENT Mar 31, 2025 14:14 SARA MCCLURE MD Mar 31, 2025 23:59
[2025-03-31] MEDS: ATORVASTATIN 20 MG TAB PO SCH (22:08)
[2025-04-01 01:00] VITALS: BP 114/63; PULSE 66; RESP 16; TEMP 97.8; O2SAT 96
[2025-04-01 05:00] VITALS: BP 141/79; PULSE 55; RESP 18; TEMP 97.8; O2SAT 96
[2025-04-01 07:03] LABS: Hematocrit 40.1 % (36.0-46.0); Hemoglobin 13.5 g/dL (12.2-16.2); Mean Corpuscular Hemoglobin 28.8 pg (28.0-32.0); Mean Corpuscular Volume 85.7 fL (80.0-100.0); Nucleated Red Blood Cells % 0.1 %
[2025-04-01 08:00] VITALS: PULSE 78
[2025-04-01 08:31] LABS: Potassium 3.8 mmol/L (3.5-5.1); Sodium 144 mmol/L (136-145)
[2025-04-01 08:32] LABS: Anion Gap 12 (5-15); Calcium 9.3 mg/dL (8.7-10.4); Carbon Dioxide 25 mmol/L (20-31)
[2025-04-01 08:37] LABS: BUN/Creatinine Ratio 17.8 (10.0-20.0); Blood Urea Nitrogen 13 mg/dL (9-23); Glucose 96 mg/dL (74-106)
[2025-04-01 08:38] VITALS: BP 146/89; PULSE 57; RESP 16; TEMP 97.9; O2SAT 95
[2025-04-01 08:41] LABS: Chloride 107 mmol/L (98-107)
[2025-04-01] MEDS: methylPREDNISolone SOD SUCC 125 MG/2 ML VL IV SCH (09:53)
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
[2025-04-01 13:00] VITALS: BP 151/88; PULSE 60; RESP 17; TEMP 97.4; O2SAT 95
--- NOTE | 2025-04-01 14:08 | DVHDSRES ---
Discharge Summary Date of Admission Resident Creating Document: VALERIA RAE RESIDENT Mar 30, 2025 at 12:06 Date of Discharge: Apr 01, 2025 Admitting Diagnosis Intractable back pain Labs/Diagnostic Data: Laboratory Results Test 04/01/25 06:09 03/31/25 06:22 03/30/25 14:03 03/30/25 09:30 White Blood Count 11.6 10^3/uL (4.4-10.8) Red Blood Count 4.68 10^6/uL (4.0-5.20) Hemoglobin 13.5 g/dL (12.2-16.2) Hematocrit 40.1 % (36.0-46.0) Mean Corpuscular Volume 85.7 fL (80.0-100.0) Mean Corpuscular Hemoglobin 28.8 pg (28.0-32.0) Mean Corpuscular Hemoglobin Concent 33.5 g/dL (32.0-36.0) Red Cell Distribution Width 13.9 % (11.8-14.3) Platelet Count 240 10^3/uL (140-450) Mean Platelet Volume 8.1 fL (6.9-10.8) Neutrophils (%) (Auto) 75.3 % (37.0-80.0) Lymphocytes (%) (Auto) 17.6 % (10.0-50.0) Monocytes (%) (Auto) 7.0 % (0.0-12.0) Eosinophils (%) (Auto) 0.0 % (0.0-7.0) Basophils (%) (Auto) 0.1 % (0.0-2.0) Neutrophils # (Auto) 8.7 10 ^3/uL (1.6-8.6) Lymphocytes # (Auto) 2.0 10 ^3/uL (0.4-5.4) Monocytes # (Auto) 0.8 10 ^3/uL (0-1.3) Eosinophils # (Auto) 0 10 ^3/uL (0-0.8) Basophils # (Auto) 0 10 ^3/uL (0-0.2) Nucleated Red Blood Cells 0.1 % Sodium Level 144 mmol/L (136-145) Potassium Level 3.8 mmol/L (3.5-5.1) Chloride Level 107 mmol/L (98-107) Carbon Dioxide Level 25 mmol/L (20-31) Anion Gap 12 (5-15) Blood Urea Nitrogen 13 mg/dL (9-23) Creatinine 0.73 mg/dL (0.550-1.02) Glomerular Filtration Rate Calc 92 mL/min (>90) BUN/Creatinine Ratio 17.8 (10.0-20.0) Serum Glucose 96 mg/dL (74-106) Calcium Level 9.3 mg/dL (8.7-10.4) Total Bilirubin 0.6 mg/dL (0.2-1.0) Aspartate Amino Transferase (AST) 27 U/L (13-40) Alanine Aminotransferase (ALT) 23 U/L (7-40) Alkaline Phosphatase 108 U/L (46-116) Total Protein 6.6 g/dL (5.7-8.2) Albumin 4.1 g/dL (3.2-4.8) Urine Color Light-yellow (Yellow) Urine Clarity Clear (Clear) Urine pH 5.5 (5.0-9.0) Urine Specific [place] 1.012 (1.001-1.035) Urine Protein Negative (Negative) Urine Ketones Negative (Negative) Urine Blood Negative /uL (Negative) Urine Nitrite Negative (Negative) Urine Bilirubin Negative (Negative) Urine Urobilinogen Normal mg/dL (Negative) Urine Leukocyte Esterase Negative /uL (Negative) Urine RBC <1 /hpf (0 - 4) Urine Microscopic WBC 1 /HPF (0-5) Urine Squamous Epithelial Cells Few /hpf (<5) Urine Bacteria None seen /hpf (None Seen) Urine Mucus Few (None Seen) Urine Glucose Normal mg/dL (Normal) Hepatitis B Surface Antibody Positive (Negative) Hepatitis C Antibody Negative (Negative) Other Laboratory Tests 04/01/25 06:09 Brief Hx & Hospital Course: 65-year-old female with a PMhx of migraine, hyperlipidemia, and 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 CT of the lumbar spine showed Scoliosis. Multilevel degenerative changes of the spine. Moderate canal and bilateral foraminal stenosis at L2-L3 and L3-L4 and L4-L5. Multilevel degenerative disc space narrowing. spinal surgery was consulted and they have suggested patient is clear for discharge and to follow up Dr. Pichardo in [facility]. Patient was given Robaxin 500 mg 4 times a day which worked for her better than the previous prescribed muscle relaxer and spinal surgery has suggested for its continuation. Patient is now stable for discharge, reports that her pain is better and therefore we are discharging her home with muscle relaxants. Patient is still follow up with her primary care physician, Dr. Pichardo and to visit [place] [facility] within 7 days. General Appearance: Alert, Oriented X3, Cooperative, No acute distress HEENT: Atraumatic, PERRLA, EOMI, Mucous membr. moist/pink Respiratory: Clear to auscultation, Normal air movement Cardiovascular: Regular rate, Normal S1, Normal S2, No murmurs Abdominal: Normal bowel sounds, Soft, No tenderness, No hepatospenomegaly, No masses Extremities: No clubbing, No cyanosis, No edema, Normal pulses, No tenderness/swelling Skin: No rashes, No breakdown, No significant lesion Neuro: Normal speech, Strength at 5/5 X4 ext, Normal tone, Sensation intact, Cranial nerves 3-12 NL, Other (midline limbar tenderness) Operations or Procedures PROCEDURE(s): LUMB2 - LUMBAR SPINE 3 VIEW INDICATION: lower back pain IMPRESSION: Of the visualized spine, there is no evidence for fracture or subluxation. PROCEDURE(s): LS2CT - LS SPINE WO CONTRAST REASON: eval for acute low back pain IMPRESSION: No definite CT evidence of acute fracture or dislocation of the bony lumbar spine. Scoliosis. Multilevel degenerative changes of the spine. Moderate canal and bilateral foraminal stenosis at L2-L3 and L3-L4 and L4-L5. Multilevel degenerative disc space narrowing. Condition at Discharge: Stable Final Diagnosis/Problems List #Acute Lumbar disc herniation with spinal canal and neural foraminal stenosis (L3S1) #Acute Intractable lumbar radiculopathy with left-sided sciatica #Severe left lower back pain radiating down left leg #Recent spinal injection with concern for post-procedural nerve irritation #Impaired mobility due to pain #hx of migraine #Hyperlipedemia Discharge Disposition: Home Discharge Instruct/Medications Diet: Regular Activity: Light activity Follow Up/Referral: Follow up with primary care physician within 7 days Follow up with neurologist once referral from PCP has been made Discharge clinic within 7 days Medications: As per EMR Scheduled Duloxetine Hcl (Cymbalta), 1 CAP PO DAILY, (Reported) Gabapentin (Gabapentin), 300 MG PO BID Methocarbamol (Methocarbamol), 500 MG PO QID Propranolol Hcl (Inderal La), 1 CAP PO DAILY, (Reported) Rosuvastatin Calcium (Crestor), 1 TAB PO DAILY, (Reported) Miscellaneous Medications Sumatriptan Succinate (Imitrex Statdose Refill), 6 MG SC, (Reported) Discharge Statement: "Patient was advised to return to the ER or call 911 if any headaches, dizziness, shortness of breath, chest pain, abdominal pain, bleeding, fevers, or worsening of medical condition. Patient was counseled about treatment plan, medications, possible side effects, patientverbalized understanding. All questions were answered to the best of my ability. This discharge took greater then 30 minutes in planning, reviewing documentation, counseling the patient, and discussing with other team members." ASSESSMENT ASSESSMENT Assessment #Acute Lumbar disc herniation with spinal canal and neural foraminal stenosis (L3S1) #Acute Intractable lumbar radiculopathy with left-sided sciatica Visit Coding STANDARD RES Billing Provider: SARA ALEXANDRA MD Date of Service if different f: Apr 01, 2025 Common Visit Codes: 57370-BLH/OBS DISCH DAY >30min VALERIA RAE RESIDENT Apr 01, 2025 14:08 SARA ALEXANDRA MD Apr 01, 2025 23:33
[2025-04-01] MEDS ORDERED: METH-1181 PO (15:14)
[2025-04-01] MEDS ORDERED: GABA-1250 PO (15:14)
== END 2025-04-01 15:48 | disposition home or self-care (01) | DRG 552 ==
LOC: ER 04:21 → OVERFLOW 12:06 → WEST WING 12:11
PROVIDERS: ADMIT Internal Medicine; ATTEND Internal Medicine
DX: M51.16 Intervertebral disc disorders with radiculopathy, lumbar region (principal); E78.5 Hyperlipidemia, unspecified; F41.9 Anxiety disorder, unspecified; M48.062 Spinal stenosis, lumbar region with neurogenic claudication; Z74.09 Other reduced mobility; M10.9 Gout, unspecified; G43.909 Migraine, unspecified, not intractable, without status migrainosus; M62.830 Muscle spasm of back
CPT/HCPCS: 36415; 72100; 72131; 80048; 80053; 81001; 85025; 86706; 86803; 96361; 96374; 96375; 97163; G0378; J1100; J2405